=== PATIENT | female | born 1980 | race Caucasian/White ===

== ENCOUNTER 2016-12-27 17:21 | Emergency (ER) | payer BC ==
[2016-12-27 17:55] LABS: Eosinophils % (Auto) 0.4 % (0.0-4.3); Hematocrit 40.1 % (30.3-42.9); Hemoglobin 13.7 gm/dl (10.1-14.3); Mean Corpuscular HGB Conc 34 % (30-34); Mean Corpuscular Hemoglobin 31 pg (28-32); Mean Corpuscular Volume 89 fl (79-97); Platelet Count 179 K/mm3 (140-440); Red Blood Count 4.49 M/mm3 (3.65-5.03); Red Cell Distribution Width 13.1 % (13.2-15.2); White Blood Count 6.5 K/mm3 (4.5-11.0)
[2016-12-27 18:14] LABS: Anion Gap 18 mmol/L; BUN/Creatinine Ratio 28.57; Blood Urea Nitrogen 20 mg/dL (7-17); Calcium 9.6 mg/dL (8.4-10.2); Carbon Dioxide 26 mmol/L (22-30); Chloride 101.2 mmol/L (98-107); Glucose 98 mg/dL (65-100); Sodium 141 mmol/L (137-145)
--- NOTE | 2016-12-27 18:32 | Cat Scan Report ---
FINAL REPORT PROCEDURE: CT HEAD/BRAIN WO CON TECHNIQUE: Computerized tomography of the head was performed without contrast material. HISTORY: neuro deficits \T\lt; 6hrs or sx present upon awakening COMPARISON: No prior studies are available for comparison. FINDINGS: The visualized portions of the paranasal sinuses are clear. Mastoid air cells are clear. There is no calvarial fracture. There is no hydrocephalus. No acute intracranial hemorrhage or mass effect is seen. There is no evidence of acute CVA. Idiopathic punctate calcifications are seen in the basal ganglia. Normal variant dilated VR spaces are seen in the inferior aspects of the basal ganglia. IMPRESSION: No suspicious abnormality is seen.
[2016-12-27 18:36] LABS: Partial Thromboplastin Time 26.6 Sec. (24.2-36.6)
[2016-12-27 18:51] LABS: Bacteria,Urine 1+ /HPF (Negative); Bilirubin,Urine NEG (Negative); Blood,Urine NEG (Negative); Ketones,Urine NEG (Negative); Leukocyte Esterase,Urine NEG (Negative); Mucus,Urine FEW /HPF; Nitrite,Urine NEG (Negative); Protein,Urine <15 mg/dL mg/dL (Negative); Urobilinogen,Urine < 2.0 mg/dL (<2.0); WBC,Urine < 1.0 /HPF (0.0-6.0)
[2016-12-27 21:08] VITALS: BP 126/72
--- NOTE | 2016-12-27 22:11 | Emergency Department Report ---
HPI - General Chief Complaint: Neuro Symptoms/Deficit Time Seen by Provider: 12/27/16 22:00 - HPI HPI: 36-year-old female, states about 4 hours ago she had a period of confusion, total vision, feeling disoriented and clavicle area pain on the right side. Patient also started having tingling on the right face, droopiness. Patient stated this is the fourth episode of such symptoms in 7 years. Patient states [place] , [place] And states she started having symptoms after that accident. ED Past Medical Hx - Past Medical History Previous Medical History?: Yes Additional medical history: neuro sx possible TIA x4 over 7years - Family History Family history: hypertension - Social History Smoking Status: Never Smoker Substance Use Type: Alcohol ED Review of Systems ROS: Stated complaint: POSS TIA Other details as noted in HPI Comment: All other systems reviewed and negative Endocrine: no symptoms reported Genitourinary: as per HPI Skin: as per HPI Neurological: confusion Physical Exam - Physical Exam Vital Signs: Vital Signs 12/27/16 12/27/16 17:22 21:05 Temperature 98.4 F 98.8 F Pulse Rate 80 69 Respiratory 20 16 Rate Blood Pressure 150/105 126/72 O2 Sat by Pulse 100 100 Oximetry Physical Exam: GENERAL: The patient is well-developed well-nourished [] HEENT: Normocephalic. Atraumatic. Extraocular motions are intact. Patient has moist mucous membranes. NECK: Supple. No meningitic signs are noted. There is no adenopathy noted. CHEST/LUNGS: Clear to auscultation. There is no respiratory distress noted. HEART/CARDIOVASCULAR: Regular. There is no tachycardia. There is no gallop rub or murmur. ABDOMEN: Abdomen is soft, nontender. Patient has normal bowel sounds. There is no abdominal distention. SKIN: There is no rash. There is no edema. There is no diaphoresis. NEURO: The patient is awake, alert, and oriented. The patient is cooperative. The patient has no focal neurologic deficits. The patient has normal speech. Cranial nerves II through XII grossly intact, no drift. Moves all extremities well MUSCULOSKELETAL: There is no evidence of acute injury. ED Course Vital Signs 12/27/16 12/27/16 17:22 21:05 Temperature 98.4 F 98.8 F Pulse Rate 80 69 Respiratory 20 16 Rate Blood Pressure 150/105 126/72 O2 Sat by Pulse 100 100 Oximetry ED Medical Decision Making - Lab Data Result diagrams: 12/27/16 17:37 12/27/16 17:37 Critical care attestation.: If time is entered above; I have spent that time in minutes in the direct care of this critically ill patient, excluding procedure time. ED Disposition Clinical Impression: Paresthesia and pain of right extremity Disposition: DC-01 TO HOME OR SELFCARE Is pt being admited?: No Does the pt Need Aspirin: No Condition: Stable Instructions: Paresthesia (ED) Referrals: PRIMARY CARE, [Primary Care Provider] - 3-5 Days
== END 2016-12-27 22:20 | disposition home or self-care (01) ==
LOC: ED 17:21
DX: R20.2 Paresthesia of skin (principal); M79.601 Pain in right arm
CPT/HCPCS: 36415; 70450; 80048; 81001; 81025; 82962; 84484; 85025; 85610; 85670; 85730; 93005; 93010